=== PATIENT | female | born 1990 | race Caucasian/White ===

== ENCOUNTER 2017-12-29 13:26 | Emergency (ER) | payer OTHER ==
--- NOTE | 2017-12-29 13:44 | ER Document Report ---
ED Medical Screen (RME) - General Chief Complaint: Abdominal Pain Stated Complaint: ABDOMINAL PAIN Time Seen by Provider: 12/29/17 13:42 Mode of Arrival: Ambulatory Information source: Patient Notes: 27-year-old female presents to the emergency room with a 4 week history of stomach pains, diarrhea. Patient denies any blood in the stool. She does have a family history for Crohn's disease as well as irritable bowel disease. She has had similar presentations in the past and is has been on probiotics in the past with minimal benefit. She is from [place] and does not have a primary care doctor in this area. She is allergic to penicillin. She takes ranitidine for GERD on an as-needed basis. I have greeted and performed a rapid initial assessment of this patient. A comprehensive ED assessment and evaluation of the patient, analysis of test results and completion of medical decision making process we will be contacted by additional ED providers. TRAVEL OUTSIDE OF THE [place] IN LAST 30 DAYS: No - Related Data Allergies/Adverse Reactions: Penicillins Allergy (Verified 12/29/17 13:27) Physical Exam - Vital signs Vitals: Temp Pulse Resp BP Pulse Ox 97.8 F 84 18 115/74 97 12/29/17 13:31 12/29/17 13:31 12/29/17 13:31 12/29/17 13:31 12/29/17 13:31 Course - Vital Signs Vital signs: Temp Pulse Resp BP Pulse Ox 97.8 F 84 18 115/74 97 12/29/17 13:31 12/29/17 13:31 12/29/17 13:31 12/29/17 13:31 12/29/17 13:31
[2017-12-29 14:21] LABS: ABSOLUTE EOSINOPHILS # (AUTO) 0.1 10^3/uL (0.0-0.6); ABSOLUTE LYMPHOCYTES (AUTO) 2.1 10^3/uL (0.5-4.7); ABSOLUTE MONOCYTES (AUTO) 0.6 10^3/uL (0.1-1.4); ABSOLUTE NEUT (AUTO) 5.5 10^3/uL (1.7-8.2); BASOPHILS % (AUTO) 0.5 % (0-2); EOSINOPHILS % (AUTO) 1.1 % (0-6); HEMATOCRIT 46.9 % (36.0-47.0); HEMOGLOBIN 15.6 g/dL (12.0-15.5); LYMPHOCYTES % (AUTO) 24.9 % (13-45); MEAN CORPUSCULAR HEMOGLOBIN 29.7 pg (27.0-33.4); MEAN CORPUSCULAR HGB CONC 33.2 g/dL (32.0-36.0); MEAN CORPUSCULAR VOLUME 90 fl (80-97); MONOCYTES % (AUTO) 7.3 % (3-13); RED BLOOD COUNT 5.24 10^6/uL (3.72-5.28); RED CELL DISTRIBUTION WIDTH 13.1 % (11.5-14.0); SEGMENTED NEUTROPHILS % (AUTO) 66.2 % (42-78); TOTAL CELLS COUNTED % (AUTO) 100 %; WHITE BLOOD COUNT 8.4 10^3/uL (4.0-10.5)
[2017-12-29 14:22] LABS: APPEARANCE,URINE SLIGHTLY-CLOUDY; BILIRUBIN,URINE NEGATIVE (NEGATIVE); COLOR,URINE AMBER; GLUCOSE, URINE NEGATIVE (NEGATIVE); KETONES,URINE 80 mg/dL (NEGATIVE); LEUKOCYTE ESTERASE,URINE MODERATE (NEGATIVE); NITRITE,URINE NEGATIVE (NEGATIVE); PROTEIN,URINE 30 mg/dL (NEGATIVE); URINE SPECIFIC GRAVITY 1.025
[2017-12-29] MEDS ORDERED: METOCLOPRAMIDE HCL ORAL SOLN 10 MG/10 ML UDCUP PO ONE (14:30)
[2017-12-29] MEDS ORDERED: MAG HYDROX/AL HYDROX/SIMETH SUSP 30 ML UDCUP PO ONE (14:30)
--- NOTE | 2017-12-29 14:49 | ER Document Report ---
ED General - General Chief Complaint: Abdominal Pain Stated Complaint: ABDOMINAL PAIN Time Seen by Provider: 12/29/17 13:42 Mode of Arrival: Ambulatory Notes: Patient is a 27-year-old female who presents emergency department the chief complaint of 6 weeks of abdominal cramping and nausea. She describes it as cramping abdominal pain that gets worse with eating any canned foods. She denies any specific worsening pain or right upper quadrant pain with fatty foods. She admits to history of esophageal reflux but does not take PPIs on a regular basis. She denies any coffee-ground emesis or hematemesis. She admits to loose stools over the past 7 days but denies any bright red blood per rectum or melena. She admits to family history significant for Crohn's disease and IBS. Patient states that she had similar episodes like this a year ago but she never followed up with . Patient states that she has been living here for a year and has not established a primary care. Patient states that she had previous primary care up in [place]. ROS: + urine odor frequency TRAVEL OUTSIDE OF THE [place] IN LAST 30 DAYS: No - Related Data Allergies/Adverse Reactions: Penicillins Allergy (Verified 12/29/17 13:27) Past Medical History - General Information source: Patient - Social History Smoking Status: Former Smoker Chew tobacco use (# tins/day): No Frequency of alcohol use: None Drug Abuse: None Family History: Other - see hpi Patient has suicidal ideation: No Patient has homicidal ideation: No Renal/ Medical History: Denies: Hx Peritoneal Dialysis Review of Systems - Review of Systems Constitutional: No symptoms reported Cardiovascular: No symptoms reported Respiratory: No symptoms reported Gastrointestinal: See HPI Genitourinary: No symptoms reported Female Genitourinary: No symptoms reported -: Yes All other systems reviewed and negative Physical Exam - Vital signs Vitals: Temp Pulse Resp BP Pulse Ox 97.8 F 84 18 115/74 97 12/29/17 13:31 12/29/17 13:31 12/29/17 13:31 12/29/17 13:31 12/29/17 13:31 - Notes Notes: PHYSICAL EXAM GENERAL: Alert, interacts well. LUNGS: Clear to auscultation bilaterally, no wheezes, rales, or rhonchi. No respiratory distress. HEART: Regular rate and rhythm. No murmurs, gallops, or rubs. ABDOMEN: Soft, nondistended, nontender. Negative for Ravenden's point, Mcqueen sign no guarding, rebound, or rigidity.. Bowel sounds present in all 4 quadrants. EXTREMITIES: Moves all 4 extremities spontaneously. No edema, radial and dorsalis pedis pulses 2/4 bilaterally. No cyanosis. NEUROLOGICAL: Alert and oriented x4. Normal speech. PSYCH: Normal affect, normal mood. SKIN: Warm, dry, normal turgor. No rashes or lesions noted. Course - Re-evaluation Re-evalutation: 12/29/17 16:39 Patient is a 27-year-old female is hemodynamically stable, no acute distress afebrile presenting with chronic abdominal pain. Patient's symptoms resolved after p.o. GI cocktail. Laboratory without any evidence of leukocytosis, anemia , x-rayed abnormalities, hepatic renal dysfunction. Lipase was also within normal limits. No concern for acute abdominal pathology regarding gallbladder disease, pancreatitis, acute appendicitis. she also has evidence of symptoms consistent with an acute cystitis. Vitals wnl. No history of fever, flank pain, or constitution symptoms to suggest ascending infection at this time. Patient is well in appearance, tolerating oral intake without difficulty. No focal abdominal tenderness to suggest acute appendicitis, biliary pathology, acute pancreatitis, tubo-ovarian abscesses, or pelvic inflammatory disease. Patient will be started on antibiotics at this time. A culture has been sent. They will be discharged with return precautions and follow-up recommendations. - Vital Signs Vital signs: Temp Pulse Resp BP Pulse Ox 98.4 F 107 H 16 106/61 99 12/29/17 16:52 12/29/17 16:52 12/29/17 16:52 12/29/17 16:52 12/29/17 16:52 - Laboratory Result Diagrams: 12/29/17 13:56 12/29/17 15:52 Laboratory results interpreted by me: 12/29/17 12/29/17 12/29/17 13:51 13:56 15:52 Hgb 15.6 H Calcium 10.4 H Urine Protein 30 H Urine Ketones 80 H Urine Urobilinogen 4.0 H Ur Leukocyte Esterase MODERATE H Discharge - Discharge Clinical Impression: UTI (urinary tract infection) Qualifiers: Urinary tract infection type: acute cystitis Hematuria presence: without hematuria Qualified Code(s): N30.00 - Acute cystitis without hematuria GERD (gastroesophageal reflux disease) Qualifiers: Esophagitis presence: without esophagitis Qualified Code(s): K21.9 - Gastro- esophageal reflux disease without esophagitis Condition: Good Disposition: HOME, SELF-CARE Instructions: Reflux Disease (GERD) ([facility]), Urinary Tract Infection ([facility]) Prescriptions: Ciprofloxacin HCl [Cipro 250 mg Tablet] 1 tab PO BID #6 tab Omeprazole Magnesium [Prilosec Otc] 20 mg PO DAILY #30 tablet. Ondansetron [Zofran Odt 4 mg Tablet] 1 - 2 tab PO Q4H PRN #15 tab.rapdis PRN Reason: For Nausea/Vomiting Sucralfate [Carafate 1 gm Tablet] 1 gm PO ACHS #120 tablet Forms: Return to Work Referrals: AI DUNN DO [NO LOCAL MD] - Follow up as needed (primary care) CARYN MASTERS MD [ACTIVE STAFF] - Follow up in 1 month (gastroenterolgy)
[2017-12-29 14:55] LABS: PLATELET COUNT 255 10^3/uL (150-450)
[2017-12-29 16:16] LABS: ALANINE AMINOTRANSFERASE 18 U/L (9-52); ALKALINE PHOSPHATASE 56 U/L (38-126); ANION GAP 17 (5-19); ASPARTATE AMINO TRANSFERASE 20 U/L (14-36); BILIRUBIN,DIRECT 0.4 mg/dL (0.0-0.4); BILIRUBIN,TOTAL 0.9 mg/dL (0.2-1.3); BLOOD UREA NITROGEN 9 mg/dL (7-20); CALCIUM 10.4 mg/dL (8.4-10.2); CARBON DIOXIDE 23 mmol/L (22-30); CHLORIDE 105 mmol/L (98-107); GLUCOSE 90 mg/dL (75-110); POTASSIUM 4.1 mmol/L (3.6-5.0); SODIUM 144.5 mmol/L (137-145); TOTAL PROTEIN 7.9 g/dL (6.3-8.2)
[2017-12-29] MEDS ORDERED: CIPROFLOXACIN HCL 500 MG TABLET PO ONE (16:42)
[2017-12-29 16:53] VITALS: BP 106/61
== END 2017-12-29 17:01 | disposition home or self-care (01) ==
LOC: ER 13:26
DX: N30.00 Acute cystitis without hematuria (principal); K21.9 Gastro-esophageal reflux disease without esophagitis; R19.4 Change in bowel habit; R10.9 Unspecified abdominal pain; G89.29 Other chronic pain; Z87.19 Personal history of other diseases of the digestive system; Z83.79 Family history of other diseases of the digestive system; Z87.891 Personal history of nicotine dependence; Z88.0 Allergy status to penicillin
CPT/HCPCS: 36415; 80053; 81001; 81025; 83690; 84702; 85025; 99284

== ENCOUNTER 2018-05-03 17:37 | Emergency (ER) | payer OTHER ==
[2018-05-03] MEDS ORDERED: NORMAL SALINE 1000 ML 1,000 ML IV ONE (18:29)
[2018-05-03] MEDS ORDERED: ONDANSETRON HCL INJ/PF 4 MG/2 ML SDV IV ONE ×2 (18:29→20:27)
--- NOTE | 2018-05-03 18:31 | ER Document Report ---
ED Medical Screen (RME) - General Chief Complaint: Abdominal Pain Stated Complaint: VOMITING/DIARRHEA/ABDOMINAL PAIN Time Seen by Provider: 05/03/18 18:28 Mode of Arrival: Wheelchair Information source: Patient, Relative TRAVEL OUTSIDE OF THE U.S[place] IN LAST 30 DAYS: No - HPI Patient complains to provider of: vomiting in Onset: Other - pt is G1 approx 6 wks along with constant nausea and vomoiting for the past 3-4 dayswith intermittent abd pain - Related Data Allergies/Adverse Reactions: Penicillins Allergy (Verified 12/29/17 13:27) Past Medical History - Social History Chew tobacco use (# tins/day): No Frequency of alcohol use: None Drug Abuse: Marijuana Renal/ Medical History: Denies: Hx Peritoneal Dialysis GI Medical History: Reports: Hx Gastroesophageal Reflux Disease Past Surgical History: Reports: Hx Breast Surgery - left fibroid removed, Hx Oral Surgery Physical Exam - Vital signs Vitals: Temp Pulse Resp BP Pulse Ox 97.5 F 83 18 107/70 100 05/03/18 17:49 05/03/18 17:49 05/03/18 17:49 05/03/18 17:49 05/03/18 17:49 Course - Vital Signs Vital signs: Temp Pulse Resp BP Pulse Ox 97.5 F 83 18 107/70 100 05/03/18 17:49 05/03/18 17:49 05/03/18 17:49 05/03/18 17:49 05/03/18 17:49
[2018-05-03 19:22] LABS: HEMATOCRIT 43.7 % (36.0-47.0); HEMOGLOBIN 15.1 g/dL (12.0-15.5); MEAN CORPUSCULAR HEMOGLOBIN 30.4 pg (27.0-33.4); MEAN CORPUSCULAR HGB CONC 34.4 g/dL (32.0-36.0); MEAN CORPUSCULAR VOLUME 88 fl (80-97); PLATELET COUNT 380 10^3/uL (150-450); RED BLOOD COUNT 4.95 10^6/uL (3.72-5.28); RED CELL DISTRIBUTION WIDTH 13.1 % (11.5-14.0); WHITE BLOOD COUNT 14.7 10^3/uL (4.0-10.5)
[2018-05-03 19:47] LABS: ALANINE AMINOTRANSFERASE 21 U/L (9-52); ALBUMIN 5.3 g/dL (3.5-5.0); ALKALINE PHOSPHATASE 57 U/L (38-126); ASPARTATE AMINO TRANSFERASE 25 U/L (14-36); BILIRUBIN,DIRECT 0.4 mg/dL (0.0-0.4); BILIRUBIN,TOTAL 1.1 mg/dL (0.2-1.3); BLOOD UREA NITROGEN 9 mg/dL (7-20); CALCIUM 10.8 mg/dL (8.4-10.2); GLUCOSE 130 mg/dL (75-110); POTASSIUM 4.1 mmol/L (3.6-5.0); TOTAL PROTEIN 8.4 g/dL (6.3-8.2)
[2018-05-03 19:51] LABS: ABSOLUTE LYMPHOCYTES# (MANUAL) 0.6 10^3/uL (0.5-4.7); ABSOLUTE MONOCYTES # (MANUAL) 0.1 10^3/uL (0.1-1.4); BASOPHILS % (MANUAL) 0 % (0-2); EOSINOPHILS % (MANUAL) 0 % (0-6); LYMPHOCYTES % (MANUAL) 4 % (13-45); MONOCYTES % (MANUAL) 1 % (3-13); SEGMENTED NEUTROPHILS % (MAN) 95 % (42-78); TOTAL CELLS COUNTED 100
[2018-05-03 19:52] LABS: OVALOCYTES SLIGHT; PLATELET COMMENT ADEQUATE; PLATELET LARGE PRESENT; POIKILOCYTOSIS SLIGHT
[2018-05-03 19:52] LABS: ANION GAP 18 (5-19); CARBON DIOXIDE 17 mmol/L (22-30); CHLORIDE 103 mmol/L (98-107)
[2018-05-03] MEDS ORDERED: DEXTROSE 5%-1/2 NORMAL SALINE 1,000 ML IV ONE (21:13)
--- NOTE | 2018-05-03 21:13 | RADIOLOGY REPORT (SQ) ---
EXAM DESCRIPTION: US PELVIS COMPLETED DATE/TME: 05/03/2018 18:29 CLINICAL HISTORY: 28 years, Female, abd pain COMPARISON: None. EXAM DESCRIPTION: CLINICAL HISTORY: abd pain COMPARISON: None. FINDINGS: [] [transvaginal ] images of the pelvis were submitted. Uterus measures 84 x 51 x 39 mm. Cervix length is 3.3 cm. Right ovary measures 31 x 18 x 19 mm and left ovary 32 x 11 x 14 mm. There is a single IUP with estimated gestational age of six weeks five days, ultrasound UGO is December 22, 2018. Yolk sac and gestational sac are seen. No cardiac motion is identified at this time. There are probable nabothian cysts. Echogenic focus of the left ovary could be a hemorrhagic cyst but is nonspecific. Flow is seen in each ovary. There is no sonographic evidence of ovarian torsion. There is no significant free fluid in the pelvis. IMPRESSION: Single IUP as described. Lack of heart motion could be due to young gestational age but follow-up is recommended.
[2018-05-03] MEDS ORDERED: PROCHLORPERAZINE EDISYLATE INJ 10 MG/2 ML VIAL IV ONE (21:14)
[2018-05-03] MEDS ORDERED: ACETAMINOPHEN WITH CODEINE #3 TABLET PO ONE (21:14)
--- NOTE | 2018-05-03 21:15 | ER Document Report ---
ED GI/ - General Chief Complaint: Abdominal Pain Stated Complaint: VOMITING/DIARRHEA/ABDOMINAL PAIN Time Seen by Provider: 05/03/18 18:28 Mode of Arrival: Wheelchair Notes: 28-year-old female to the emergency department chief complaint of nausea and vomiting and diarrhea. Patient thinks that she is approximately 6 weeks . Having some crampy lower abdominal pain. Has not had an ultrasound. States that she always have diarrhea. Diarrhea is worse today. Denies any fever but does have generalized chills and aches. Denies any vaginal complaints. Denies any vaginal bleeding at this time. TRAVEL OUTSIDE OF THE [place] IN LAST 30 DAYS: No - HPI Patient complains to provider of: Abdominal pain, Diarrhea, , Vomiting Onset: Yesterday Timing/Duration: Gradual, Worse Quality of pain: Achy Severity at maximum: Moderate Severity in ED: Moderate Pain Level: 3 - Related Data Allergies/Adverse Reactions: Penicillins Allergy (Verified 12/29/17 13:27) Past Medical History - General Information source: Patient, Relative - Social History Smoking Status: Never Smoker Chew tobacco use (# tins/day): No Frequency of alcohol use: None Drug Abuse: Marijuana Family History: Other - see hpi Patient has suicidal ideation: No Patient has homicidal ideation: No Renal/ Medical History: Denies: Hx Peritoneal Dialysis GI Medical History: Reports: Hx Gastroesophageal Reflux Disease Past Surgical History: Reports: Hx Breast Surgery - left fibroid removed, Hx Oral Surgery Review of Systems - Review of Systems Notes: Constitutional: Complaining of chills and fever EENT: denies: Eye discharge, Blurred vision, Tearing, Double vision, Nose congestion, Nose discharge, Throat swelling, Mouth pain Cardiovascular: denies: Palpitations, Heart racing, Orthopnea, Dyspnea, Chest pain Respiratory: denies: Cough, Hurts to breathe, Wheezing, Shortness of breath Gastrointestinal: Patient reports complaints of nausea, vomiting, diarrhea and abdominal pain, . Denies any blood in the stool Genitourinary: denies: Burning, Dysuria, Discharge, Frequency, Flank pain, Hematuria Musculoskeletal: denies: Joint pain, Joint swelling, Muscle pain, Muscle stiffness, back pain Hematologic/Lymphatic: denies: Anemia, Easy bleeding, Easy bruising, Blood clots Neurological/Psychological: denies: Confusion, Dementia, Depression, Loss of consciousness Skin: No lesions, no masses, no skin breakdown, no abscesses Physical Exam - Vital signs Vitals: Temp Pulse Resp BP Pulse Ox 97.5 F 83 18 107/70 100 05/03/18 17:49 05/03/18 17:49 05/03/18 17:49 05/03/18 17:49 05/03/18 17:49 Interpretation: Normal - General General appearance: Appears well, Alert - HEENT Head: Normocephalic, Atraumatic Eyes: Normal Pupils: PERRL - Respiratory Respiratory status: No respiratory distress Chest status: Nontender Breath sounds: Normal Chest palpation: Normal - Cardiovascular Rhythm: Regular Heart sounds: Normal auscultation Murmur: No - Abdominal Inspection: Normal Distension: No distension Bowel sounds: Hyperactive Tenderness: Nontender. No: McBurney's point, Mcqueen's sign, Guarding, Rebound Organomegaly: No organomegaly Notes: She has a benign abdomen. Has no guarding or rebound no pain in the right lower quadrant with deep palpation - Back Back: Normal, Nontender - Extremities General upper extremity: Normal inspection, Nontender, Normal color, Normal ROM , Normal temperature General lower extremity: Normal inspection, Nontender, Normal color, Normal ROM , Normal temperature, Normal weight bearing. No: Juwan's sign - Neurological Neuro grossly intact: Yes Cognition: Normal Orientation: AAOx4 Richardson Coma Scale Eye Opening: Spontaneous Irma Coma Scale Verbal: Oriented Richardson Coma Scale Motor: Obeys Commands Irma Coma Scale Total: 15 Speech: Normal Motor strength normal: LUE, RUE, LLE, RLE Sensory: Normal - Psychological Associated symptoms: Normal affect, Normal mood - Skin Skin Temperature: Warm Skin Moisture: Dry Skin Color: Normal Course - Re-evaluation Re-evalutation: 05/03/18 21:25 Patient is a mildly elevated WBC count. Positive . Ultrasound obtained which shows intrauterine . No obvious dilated tubular structures in the right lower quadrant. Has a very benign exam. Patient demonstrating more signs and symptoms consistent with a gastroenteritis however strict warning signs are going to be given with regards to abdominal pain as it can be very difficult diagnosis especially when trying to rule out appendicitis while . Patient verbalized understanding of the fact that she needs to come in for repeat evaluation in 24 hours if symptoms are persisting. We will give her some Compazine as Spenser does not seem to be helping. I am going to give her another liter of fluid and a Tylenol 3 to help with the cramping that she is having in the abdomen from the diarrhea. 05/03/18 23:03 Patient feeling a little bit better at this time. I have given her strict instructions with regards to 24-hour follow-up. Will DC at this time in stable condition. Will give follow-up information for gastroenterology as patient may actually have undiagnosed ulcerative colitis or Crohn's disease based on her history. - Vital Signs Vital signs: Temp Pulse Resp BP Pulse Ox 97.5 F 83 18 107/70 100 05/03/18 17:49 05/03/18 17:49 05/03/18 17:49 05/03/18 17:49 05/03/18 17:49 - Laboratory Result Diagrams: 05/03/18 18:24 05/03/18 18:28 Laboratory results interpreted by me: 05/03/18 05/03/18 05/03/18 18:24 18:28 21:10 WBC 14.7 H Seg Neuts % (Manual) 95 H Lymphocytes % (Manual) 4 L Monocytes % (Manual) 1 L Abs Neuts (Manual) 14.0 H Carbon Dioxide 17 L Glucose 130 H Calcium 10.8 H Total Protein 8.4 H Albumin 5.3 H Beta HCG, Quant 72561.00 H Urine Protein 30 H Urine Ketones 80 H Urine Blood SMALL H Discharge - Discharge Clinical Impression: Hyperemesis gravidarum Condition: Good Disposition: HOME, SELF-CARE Instructions: Observation for Appendicitis ([facility]), Intravenous (IV) Fluids ([facility]) , Diarrhea, Nonspecific ([facility]), Hyperemesis Gravidarum ([facility]) Additional Instructions: In the event that your abdominal pain is getting worse, you develop a fever, worsening symptoms in the next 24 hours please return as it can sometimes be very difficult to diagnose appendicitis in the first 24 hours. It will probably be important that you follow-up with a motor grader operator to make sure that you do not have an inflammatory bowel disease based on your history. Please make an appointment follow-up with [facility] as well. Drink plenty of fluids. Return for any other concerns. Some insurance companies will not pay for the nausea medicine for which I have prescribed as it is quite expensive. If your insurance does not pay for the medication then I recommend getting over- the-counter vitamin B6 and take 10 mg twice a day and take 1 doxylamine (also known as Unisom) tablet at night this is basically the same medication for which I have prescribed you. Prescriptions: Doxylamine Succinate/Vit B6 [Raghavendra Tamez 10-10 mg Tablet] 2 each PO QHS 15 Days #30 tablet. Referrals: HELEN COBB MD [ACTIVE STAFF] - Follow up in 3-5 days DARIUS STOKES MD [ACTIVE STAFF] - Follow up as needed ABIGAIL AUSTIN MD [ACTIVE STAFF] - Follow up as needed
[2018-05-03 21:26] LABS: APPEARANCE,URINE SLIGHTLY-CLOUDY; BILIRUBIN,URINE NEGATIVE (NEGATIVE); COLOR,URINE YELLOW; GLUCOSE, URINE NEGATIVE (NEGATIVE); KETONES,URINE 80 mg/dL (NEGATIVE); LEUKOCYTE ESTERASE,URINE NEGATIVE (NEGATIVE); NITRITE,URINE NEGATIVE (NEGATIVE); PROTEIN,URINE 30 mg/dL (NEGATIVE); URINE SPECIFIC GRAVITY 1.023; UROBILINOGEN,URINE NEGATIVE mg/dL (<2.0)
[2018-05-03] MEDS ORDERED: ONDANSETRON ODT 4 MG TAB (6 TAB/ER DISP) PO PRN (23:03)
[2018-05-03 23:33] VITALS: BP 115/57
== END 2018-05-03 23:39 | disposition home or self-care (01) ==
LOC: ER 17:37
DX: O21.0 Mild hyperemesis gravidarum (principal); O26.899 Other specified pregnancy related conditions, unspecified trimester; R19.7 Diarrhea, unspecified; R10.30 Lower abdominal pain, unspecified; R10.9 Unspecified abdominal pain; R68.83 Chills (without fever); O99.320 Drug use complicating pregnancy, unspecified trimester; F12.10 Cannabis abuse, uncomplicated; O99.119 Other diseases of the blood and blood-forming organs and certain disorders involving the immune mechanism complicating pregnancy, unspecified trimester; D72.829 Elevated white blood cell count, unspecified; Z3A.00 Weeks of gestation of pregnancy not specified; Z88.0 Allergy status to penicillin; Z87.19 Personal history of other diseases of the digestive system
CPT/HCPCS: 96376; 99284; 96361; 96374; 96375; 36415; 84702; 85025; 80053; 81001; 76856; 93976; J0780; J2405; J7030

== ENCOUNTER 2018-05-07 00:57 | Emergency (ER) | payer OTHER ==
[2018-05-07] MEDS ORDERED: NORMAL SALINE 1000 ML 1,000 ML IV ONE ×2 (03:17→06:00)
[2018-05-07] MEDS ORDERED: PROCHLORPERAZINE EDISYLATE INJ 10 MG/2 ML VIAL IM ONE (03:29)
[2018-05-07] MEDS ORDERED: PROCHLORPERAZINE EDISYLATE INJ 10 MG/2 ML VIAL IV ONE (03:35)
--- NOTE | 2018-05-07 03:45 | ER Document Report ---
ED General - General Chief Complaint: Nausea/Vomiting Stated Complaint: PROBLEMS URINATING,VOMITING Time Seen by Provider: 05/07/18 03:02 Notes: Patient is a 28-year-old female presenting to the emergency department complaining of vomiting. Patient states she has vomited over 20 times today is currently denying blood in her emesis. Patient's denying diarrhea, fever, or dysuria. Patient states her stomach hurts "all over". Patient states this afternoon after urinating when she wiped she noticed a pink/red tinge on the toilet paper. Patient is unsure if blood is coming from her urine or her vagina. Patient states she was here on Sunday for vomiting and diarrhea. States vomiting got a little bit better with Compazine administration. Patient states Zofran did not work at all. Patient states her last menstrual period was 03/19/2018, she thinks she is 7 weeks . She has an appointment with ANV[facility] and Gio Peng on 2017. Patient states she typically smokes marijuana for intermittent abdominal pain. States she has never seen a business services vice president for this. States she has episodes of diarrhea and constipation often. Patient denies currently smoking marijuana. Past medical history: GERD Medications: None Allergies: Penicillin Surgical history: Left breast cyst removed Patient denies EtOH use or cigarette use. Patient admits to occasional marijuana use but not since she found out she is . TRAVEL OUTSIDE OF THE U.S[place] IN LAST 30 DAYS: No - Related Data Allergies/Adverse Reactions: Penicillins Allergy (Verified 12/29/17 13:27) Past Medical History - General Information source: Patient - Social History Smoking Status: Never Smoker Chew tobacco use (# tins/day): No Frequency of alcohol use: None Drug Abuse: None Lives with: Family Family History: Reviewed & Not Pertinent, Other - see hpi Patient has suicidal ideation: No Patient has homicidal ideation: No Renal/ Medical History: Denies: Hx Peritoneal Dialysis GI Medical History: Reports: Hx Gastroesophageal Reflux Disease Past Surgical History: Reports: Hx Breast Surgery - left fibroid removed, Hx Oral Surgery Review of Systems - Review of Systems Constitutional: See HPI EENT: No symptoms reported Cardiovascular: No symptoms reported Respiratory: No symptoms reported Gastrointestinal: See HPI Genitourinary: See HPI Female Genitourinary: See HPI Musculoskeletal: No symptoms reported Skin: No symptoms reported Hematologic/Lymphatic: No symptoms reported Neurological/Psychological: No symptoms reported Physical Exam - Vital signs Vitals: Temp Pulse Resp BP Pulse Ox 98.0 F 82 18 103/49 L 99 05/07/18 01:40 05/07/18 01:40 05/07/18 01:40 05/07/18 01:40 05/07/18 01:40 - Notes Notes: GENERAL: Alert, interacts well. Vomited twice saliva and bile in nature while in room obtaining HPI. HEAD: Normocephalic, atraumatic. EYES: Pupils equal, round, and reactive to light. Extraocular movements intact. ENT: Oral mucosa dry, tongue midline. NECK: Full range of motion. Supple. Trachea midline. LUNGS: Clear to auscultation bilaterally, no wheezes, rales, or rhonchi. No respiratory distress. HEART: Regular rate and rhythm. No murmur ABDOMEN: Soft, Non-distended. Bowel sounds present in all 4 quadrants. Mild epigastric pain upon palpation. No McBurney's point tenderness, no Mcqueen sign. EXTREMITIES: Moves all 4 extremities spontaneously. No edema, normal radial and dorsalis pedis pulses bilaterally. No cyanosis. BACK: no cervical, thoracic, lumbar midline tenderness. No saddle anesthesia, normal distal neurovascular exam. NEUROLOGICAL: Alert and oriented x3. Normal speech. cranial nerves II through XII grossly intact PSYCH: Normal affect, normal mood. SKIN: Warm, dry, normal turgor. No rashes or lesions noted. Course - Re-evaluation Re-evalutation: 05/07/18 06:05 Pt. stated that she not longer feels nauseated and was able to PO some ice chips. Stated that she did not get the RX filled from her last visit ([facility]) because she was told it was for diarrhea and she was not having anymore diarrhea. Stated again that she has an apt with OBGYN on 05/15/2018. Discussed need to fill RX given and she stated she still had it. Also discussed with the Pt. take Zantac at home for a potential GERD underlying illness. Only Zantac in the ED is liquid which I think will upset the Pts stomach, she agrees to take it at home in pill form. 05/07/18 06:51 RN stated Pt. was nauseated again but had not again vomited, Zofran ordered and given. Upon re-eval Pt. stated she no longer feels nauseated. Second IV NSS 1000ml given. Pt. stated she is ready to go home. Return precautions given. - Vital Signs Vital signs: Temp Pulse Resp BP Pulse Ox 98.0 F 82 18 103/49 L 99 05/07/18 01:40 05/07/18 01:40 05/07/18 01:40 05/07/18 01:40 05/07/18 01:40 - Laboratory Result Diagrams: 05/07/18 03:40 05/07/18 05:05 Laboratory results interpreted by me: 05/07/18 05/07/18 05/07/18 03:40 05:05 05:05 Seg Neutrophils % 89.4 H Lymphocytes % 7.4 L Absolute Neutrophils 9.1 H Carbon Dioxide 19 L BUN 5 L Creatinine 0.50 L Beta HCG, Quant 48643.00 H Urine Protein Urine Ketones Urine HCG, Qual 05/07/18 06:15 Seg Neutrophils % Lymphocytes % Absolute Neutrophils Carbon Dioxide BUN Creatinine Beta HCG, Quant Urine Protein 30 H Urine Ketones 80 H Urine HCG, Qual POSITIVE H Discharge - Discharge Clinical Impression: Hyperemesis gravidarum Condition: Stable Disposition: HOME, SELF-CARE Instructions: Antinausea Medication ([facility]), Intravenous (IV) Fluids ([facility]), Vomiting ([facility]) Additional Instructions: As we discussed your US shows no current abnormalities with the baby. You still need to keep your apt with BGYN on the 24th. You should take Zofran for vomiting , and also take Zantac as prescribed. You should get the Diclegis prescription filled that was given to the other day. Please return to the emergency room should you have uncontrollable vomiting, feels lightheaded dizzy, or any other concerning symptoms. Prescriptions: Ondansetron [Zofran Odt 4 mg Tablet] 1 - 2 tab PO Q4H PRN #10 tab.rapdis PRN Reason: For Nausea/Vomiting Ranitidine HCl [Zantac] 150 mg PO DAILY #30 tablet
[2018-05-07 03:54] LABS: ABSOLUTE LYMPHOCYTES (AUTO) 0.8 10^3/uL (0.5-4.7); ABSOLUTE MONOCYTES (AUTO) 0.3 10^3/uL (0.1-1.4); ABSOLUTE NEUT (AUTO) 9.1 10^3/uL (1.7-8.2); BASOPHILS % (AUTO) 0.2 % (0-2); HEMATOCRIT 42.7 % (36.0-47.0); HEMOGLOBIN 14.8 g/dL (12.0-15.5); LYMPHOCYTES % (AUTO) 7.4 % (13-45); MEAN CORPUSCULAR HEMOGLOBIN 30.2 pg (27.0-33.4); MEAN CORPUSCULAR HGB CONC 34.6 g/dL (32.0-36.0); MEAN CORPUSCULAR VOLUME 87 fl (80-97); PLATELET COUNT 337 10^3/uL (150-450); RED BLOOD COUNT 4.88 10^6/uL (3.72-5.28); RED CELL DISTRIBUTION WIDTH 12.9 % (11.5-14.0); SEGMENTED NEUTROPHILS % (AUTO) 89.4 % (42-78); TOTAL CELLS COUNTED % (AUTO) 100 %; WHITE BLOOD COUNT 10.2 10^3/uL (4.0-10.5)
--- NOTE | 2018-05-07 05:23 | RADIOLOGY REPORT (SQ) ---
CLINICAL DATA: 28-year-old female seven weeks with vaginal bleeding. TECHNICAL DATA: Sonographic imaging of the pelvis was performed transvaginally. FINDINGS: The uterus is normal in size and configuration and measures: 8.1 x 3.5 x 6.3 cm. There are small cervical nabothian cysts. There is a normal appearing intrauterine gestational sac. The average sac diameter measures Centimeters. There is a yolk sac and pole. The average crown-rump length measures 0.3 cm corresponding to a gestational age of five weeks six days. The estimated date of confinement is 01/01/2019. Doppler imaging reveals a heart rate of 150 beats per minute. The right ovary is grossly normal in size, shape and echogenicity and measures: 2.4 x 3.4 x 1.9 cm. There is a dominant follicle arising from the right ovary measuring 1.3 x 2.1 x 1.2 cm. There is normal pulsed and color Doppler flow to the right ovary. The left ovary is grossly normal in size, shape and echogenicity and measures: 1.4 x 3.6 x 1.5 cm. There is a stable small focal area of increased echogenicity arising from the left ovary measuring approximately 0.6 x 0.5 x 0.5 cm. This is nonspecific. This could represent a small scar within the left ovary or small hemorrhagic cyst. There are normal-appearing follicles arising from the left ovary. There is normal pulsed and color Doppler flow to the left ovary. There is no free fluid in the pelvis. IMPRESSION: 1. There is now visualization of a pole with an average crown-rump length of 0.3 cm corresponding to a gestational age of five weeks six days and estimated due date of 01/01/2019. Doppler imaging reveals a heart rate of 150 bpm. 2. Other stable findings as described above.
[2018-05-07 05:34] LABS: ALANINE AMINOTRANSFERASE 21 U/L (9-52); ALBUMIN 4.2 g/dL (3.5-5.0); ALKALINE PHOSPHATASE 45 U/L (38-126); ANION GAP 15 (5-19); ASPARTATE AMINO TRANSFERASE 18 U/L (14-36); BILIRUBIN,DIRECT 0.3 mg/dL (0.0-0.4); BILIRUBIN,TOTAL 0.9 mg/dL (0.2-1.3); BLOOD UREA NITROGEN 5 mg/dL (7-20); CALCIUM 9.3 mg/dL (8.4-10.2); CARBON DIOXIDE 19 mmol/L (22-30); CHLORIDE 106 mmol/L (98-107); GLUCOSE 109 mg/dL (75-110); POTASSIUM 3.6 mmol/L (3.6-5.0); SODIUM 139.9 mmol/L (137-145); TOTAL PROTEIN 6.8 g/dL (6.3-8.2)
[2018-05-07] MEDS ORDERED: RANITIDINE HCL SYRUP 150 MG/10 ML UDCUP PO ONE (06:27)
[2018-05-07] MEDS ORDERED: ONDANSETRON HCL INJ/PF 4 MG/2 ML SDV IV ONE (06:27)
[2018-05-07 06:33] LABS: APPEARANCE,URINE SLIGHTLY-CLOUDY; BILIRUBIN,URINE NEGATIVE (NEGATIVE); COLOR,URINE YELLOW; GLUCOSE, URINE NEGATIVE (NEGATIVE); KETONES,URINE 80 mg/dL (NEGATIVE); LEUKOCYTE ESTERASE,URINE NEGATIVE (NEGATIVE); NITRITE,URINE NEGATIVE (NEGATIVE); PROTEIN,URINE 30 mg/dL (NEGATIVE); URINE SPECIFIC GRAVITY 1.023; UROBILINOGEN,URINE NEGATIVE mg/dL (<2.0)
[2018-05-07 07:58] VITALS: BP 108/54
== END 2018-05-07 07:45 | disposition home or self-care (01) ==
LOC: ER 00:57
DX: O21.0 Mild hyperemesis gravidarum (principal); O26.891 Other specified pregnancy related conditions, first trimester; R10.84 Generalized abdominal pain; Z3A.01 Less than 8 weeks gestation of pregnancy; Z88.0 Allergy status to penicillin
CPT/HCPCS: 99284; 96361; 96374; 96375; 86900; 86901; 36415; 84702; 83690; 85025; 81025; 80053; 81001; 76817; 93976; J0780; J2405; J7030

== ENCOUNTER 2018-05-11 05:32 | Emergency (ER) | payer OTHER ==
[2018-05-11] MEDS ORDERED: FAMOTIDINE INJ/PF 20 MG/2 ML SDV IV ONE (06:19)
[2018-05-11] MEDS ORDERED: PROMETHAZINE HCL INJ 25 MG/1 ML VIAL IV ONE (06:19)
--- NOTE | 2018-05-11 06:27 | ER Document Report ---
ED General - General Chief Complaint: Nausea/Vomiting Stated Complaint: VOMITING Time Seen by Provider: 05/11/18 05:59 Mode of Arrival: Ambulatory Information source: Patient Notes: 28-year-old female at approximately 7 weeks gestation per last ultrasound with reflux presents for the third time in 2 weeks with complaint of nausea, vomiting and abdominal pain. Patient states she has been unable to keep anything down. She is unable to eat or take her vitamins. Patient denies any lower abdominal pain, vaginal bleeding. She has not yet been seen by OB. She denies fever, chills, dysuria, hematuria, vaginal discharge. TRAVEL OUTSIDE OF THE [place] IN LAST 30 DAYS: No - HPI Onset: Other Onset/Duration: Worse Quality of pain: Achy Severity: Moderate Associated symptoms: Body/muscle aches, Nausea, Vomiting. denies: Chest pain, Diarrhea, Fever, Shortness of breath Exacerbated by: Denies Relieved by: Denies Similar symptoms previously: Yes Recently seen / treated by doctor: Yes - Related Data Allergies/Adverse Reactions: Penicillins Allergy (Verified 12/29/17 13:27) Past Medical History - General Information source: Patient, [facility] Records - Social History Smoking Status: Never Smoker Frequency of alcohol use: None Drug Abuse: None Lives with: Spouse/Significant other Family History: Reviewed & Not Pertinent, Other - see hpi Patient has suicidal ideation: No Patient has homicidal ideation: No Renal/ Medical History: Denies: Hx Peritoneal Dialysis GI Medical History: Reports: Hx Gastroesophageal Reflux Disease Past Surgical History: Reports: Hx Breast Surgery - left fibroid removed, Hx Oral Surgery Review of Systems - Review of Systems Notes: REVIEW OF SYSTEMS: CONSTITUTIONAL : Denies fever, chills, or sweats. Denies recent illness. Denies weight loss, recent hospitalizations. EENT: Denies visual changes, eye pain. Denies sore throat, oral lesions, difficulty swallowing. CARDIOVASCULAR: Denies chest pain. Denies palpitations. Denies lower extremity edema. RESPIRATORY: Denies cough. Denies shortness of breath, wheezing. GASTROINTESTINAL: Denies abdominal distention. Denies diarrhea. Denies blood in vomitus, stools, or per rectum. Denies black, tarry stools. Denies constipation. GENITOURINARY: Denies difficulty urinating, painful urination, frequency, blood in urine, or vaginal discharge. MUSCULOSKELETAL: Denies back or neck pain or stiffness. Denies joint pain or swelling. SKIN: Denies rash, lesions or sores. HEMATOLOGIC : Denies easy bruising or bleeding. LYMPHATIC: Denies swollen glands. NEUROLOGICAL: Denies confusion or altered mental status. Denies loss of consciousness. Denies dizziness or lightheadedness. Denies headache. Denies weakness or paralysis. Denies problems difficulty with ambulation, slurred speech. Denies sensory loss, numbness, or tingling. Denies seizures. PSYCHIATRIC: Denies anxiety or stress. Denies depression, suicidal ideation, or homicidal ideation. Denies visual or auditory hallucinations. Physical Exam - Vital signs Vitals: Temp Pulse Resp BP Pulse Ox 97.8 F 107 H 18 111/84 97 05/11/18 05:39 05/11/18 05:39 05/11/18 05:39 05/11/18 05:39 05/11/18 05:39 Interpretation: Tachycardic - Notes Notes: PHYSICAL EXAMINATION: GENERAL: Ill-appearing, well-nourished and in no acute distress. HEAD: Atraumatic, normocephalic. EYES: Pupils equal round and reactive to light, extraocular movements intact, conjunctiva are normal. ENT: Nares patent, oropharynx clear without exudates. dry mucous membranes. NECK: Normal range of motion, supple without lymphadenopathy LUNGS: Breath sounds clear to auscultation bilaterally and equal. No wheezes rales or rhonchi. HEART: Regular rate and rhythm without murmurs ABDOMEN: Epigastric abdominal tenderness with palpation. No guarding, no rebound. No masses appreciated. Female : deferred Musculoskeletal: Normal range of motion, no pitting or edema. No cyanosis. NEUROLOGICAL: Cranial nerves grossly intact. Normal speech, normal gait. Normal sensory, motor exams PSYCH: Normal mood, normal affect. SKIN: Warm, Dry, normal turgor, no rashes or lesions noted. Course - Re-evaluation Re-evalutation: Laboratory 05/11/18 05/11/18 05/11/18 06:45 06:45 08:15 WBC 12.1 H RBC 5.47 H Hgb 16.6 H Hct 47.8 H MCV 87 MCH 30.3 MCHC 34.7 RDW 13.2 Plt Count 410 Seg Neutrophils % 88.9 H Lymphocytes % 6.6 L Monocytes % 4.4 Eosinophils % 0.0 Basophils % 0.1 Absolute Neutrophils 10.7 H Absolute Lymphocytes 0.8 Absolute Monocytes 0.5 Absolute Eosinophils 0.0 Absolute Basophils 0.0 Sodium 137.1 Potassium 4.2 Chloride 102 Carbon Dioxide 11 L Anion Gap 24 H BUN 8 Creatinine 0.57 Est GFR ( Amer) > 60 Est GFR (Non-Af Amer) > 60 Glucose 102 Calcium 11.4 H Total Bilirubin 1.2 Direct Bilirubin 0.4 Neonat Total Bilirubin Not Reportable Neonat Direct Bilirubin Not Reportable Neonat Indirect Bili Not Reportable AST 20 ALT 16 Alkaline Phosphatase 54 Total Protein 9.0 H Albumin 5.4 H Lipase 140.6 Beta HCG, Quant 662901.00 H Total Beta HCG POSITIVE Urine Color YELLOW Urine Appearance SLIGHTLY-CLOUDY Urine pH 5.0 Ur Specific Venus 1.023 Urine Protein 100 H Urine Glucose (UA) NEGATIVE Urine Ketones 80 H Urine Blood SMALL H Urine Nitrite NEGATIVE Urine Bilirubin NEGATIVE Urine Urobilinogen 2.0 H Ur Leukocyte Esterase TRACE H Urine WBC (Auto) 2 Urine RBC (Auto) 4 U Hyaline Cast (Auto) 1 Urine Bacteria (Auto) TRACE Squamous Epi Cells Auto 3 Urine Mucus (Auto) OCC Urine Ascorbic Acid NEGATIVE 28-year-old female at approximately 7 weeks gestation per last ultrasound with reflux presents for the third time in 2 weeks with complaint of nausea, vomiting and abdominal pain. Patient states she has been unable to keep anything down. Vital signs reviewed upon arrival. Patient is afebrile, normotensive and not tachycardic. She does appear significantly dehydrated. Patient received 3 L of LR, Zofran, Benadryl, promethazine. Right upper quadrant ultrasound was obtained and not consistent with cholecystitis. On reevaluation patient is asking for water which she was given and tolerated. No significant findings on CBC, CMP, urinalysis. HCG is increasing appropriately. 05/11/18 10:01 Patient was reevaluated multiple times and is sleeping comfortably. She has had no further vomiting during her ED course. Right upper quadrant ultrasound was obtained and showed no evidence of cholecystitis. Prior to discharge patient states that she is feeling much better. She does now have heard likely just that she just picked up. She does have Zofran at home and I will prescribe her promethazine to see if this works better for her. She does have an upcoming appointment with OB in 4 days. Patient was advised to return with any significant lower abdominal pain, vaginal bleeding, recurrence of persistent vomiting. Patient was evaluated and treated as appropriate for the patient's presenting symptoms and complaint, with consideration of any critical or life threatening conditions that may be associated with their obtained history and exam as noted above. All results were discussed with patient . Patient provided the opportunity to ask questions, and express concerns. Patient was educated on treatments based on their presumed diagnosis as noted above. At this time we will discharge the patient with return precautions and follow-up recommendations. Verbal discharge instructions given a the bedside. Medication warnings reviewed. Patient is in agreement with this plan and has verbalized understanding of return precautions. After careful consideration I feel that that patient can be safely discharged from the emergency department, they were advised to followup with a primary care physician in 2-3 days. Dictation on this chart was performed using voice recognition software and may result in unintended grammatical, spelling, syntax or errors. 05/11/18 19:44 05/11/18 19:44 - Vital Signs Vital signs: Temp Pulse Resp BP Pulse Ox 97.2 F 98 16 97/55 L 98 05/11/18 11:17 05/11/18 11:17 05/11/18 11:17 05/11/18 11:17 05/11/18 11:17 - Laboratory Result Diagrams: 05/11/18 06:45 05/11/18 06:45 Laboratory results interpreted by me: 05/11/18 05/11/18 05/11/18 06:45 06:45 08:15 WBC 12.1 H RBC 5.47 H Hgb 16.6 H Hct 47.8 H Seg Neutrophils % 88.9 H Lymphocytes % 6.6 L Absolute Neutrophils 10.7 H Carbon Dioxide 11 L Anion Gap 24 H Calcium 11.4 H Total Protein 9.0 H Albumin 5.4 H Beta HCG, Quant 233437.00 H Urine Protein 100 H Urine Ketones 80 H Urine Blood SMALL H Urine Urobilinogen 2.0 H Ur Leukocyte Esterase TRACE H - Diagnostic Test Radiology reviewed: Image reviewed, Reports reviewed Discharge - Discharge Clinical Impression: Hyperemesis gravidarum, First trimester , Epigastric abdominal pain Condition: Good Disposition: HOME, SELF-CARE Instructions: Hyperemesis Gravidarum ([facility]) Additional Instructions: Your symptoms are likely secondary to your . Please take your decree just and Zofran as prescribed. Please keep your already scheduled appointment with OB. Please return to the emergency department with any concerning symptoms. Follow up with your [id number] hours for further care or return to the ED IMMEDIATELY if symptoms worsen or you have any concerns. If you cannot afford to follow up with your primary care physician a list of low cost clinics have been provided at the end of your discharge papers as well. Most prescribed medications have multiple side effects. The safest thing to do is when filling your prescription speak to your pharmacist regarding possible interactions with your normal home medications and over the counter medications such as Ibuprofen, Tylenol, Benadryl. If you experience any symptoms that cause you discomfort or concern you should discontinue the medication immediately and return to the emergency room or call your primary care physician. Prescriptions: Promethazine HCl 12.5 mg PO Q6H PRN #12 tablet PRN Reason:
[2018-05-11] MEDS ORDERED: FOLIC ACID INJ 5 MG/1 ML 10 ML VIAL IV ONE ×2 (06:35→09:00)
[2018-05-11] MEDS: RINGERS SOLUTION,LACTATED 1,000 ML IV PRN ×2 (06:51→07:20)
[2018-05-11 06:57] LABS: ABSOLUTE LYMPHOCYTES (AUTO) 0.8 10^3/uL (0.5-4.7); ABSOLUTE MONOCYTES (AUTO) 0.5 10^3/uL (0.1-1.4); ABSOLUTE NEUT (AUTO) 10.7 10^3/uL (1.7-8.2); BASOPHILS % (AUTO) 0.1 % (0-2); HEMATOCRIT 47.8 % (36.0-47.0); HEMOGLOBIN 16.6 g/dL (12.0-15.5); LYMPHOCYTES % (AUTO) 6.6 % (13-45); MEAN CORPUSCULAR HEMOGLOBIN 30.3 pg (27.0-33.4); MEAN CORPUSCULAR HGB CONC 34.7 g/dL (32.0-36.0); MEAN CORPUSCULAR VOLUME 87 fl (80-97); MONOCYTES % (AUTO) 4.4 % (3-13); PLATELET COUNT 410 10^3/uL (150-450); RED BLOOD COUNT 5.47 10^6/uL (3.72-5.28); RED CELL DISTRIBUTION WIDTH 13.2 % (11.5-14.0); SEGMENTED NEUTROPHILS % (AUTO) 88.9 % (42-78); TOTAL CELLS COUNTED % (AUTO) 100 %; WHITE BLOOD COUNT 12.1 10^3/uL (4.0-10.5)
[2018-05-11 07:16] LABS: ALANINE AMINOTRANSFERASE 16 U/L (9-52); ALBUMIN 5.4 g/dL (3.5-5.0); ALKALINE PHOSPHATASE 54 U/L (38-126); ASPARTATE AMINO TRANSFERASE 20 U/L (14-36); BILIRUBIN,DIRECT 0.4 mg/dL (0.0-0.4); BILIRUBIN,TOTAL 1.2 mg/dL (0.2-1.3); BLOOD UREA NITROGEN 8 mg/dL (7-20); CALCIUM 11.4 mg/dL (8.4-10.2); GLUCOSE 102 mg/dL (75-110); LIPASE 140.6 U/L (23-300); POTASSIUM 4.2 mmol/L (3.6-5.0)
[2018-05-11 07:22] LABS: CARBON DIOXIDE 11 mmol/L (22-30); CHLORIDE 102 mmol/L (98-107); SODIUM 137.1 mmol/L (137-145)
[2018-05-11] MEDS ORDERED: ONDANSETRON HCL INJ/PF 4 MG/2 ML SDV IV ONE (08:15)
[2018-05-11 08:30] LABS: ANION GAP 24 (5-19)
[2018-05-11 08:39] LABS: APPEARANCE,URINE SLIGHTLY-CLOUDY; BILIRUBIN,URINE NEGATIVE (NEGATIVE); COLOR,URINE YELLOW; GLUCOSE, URINE NEGATIVE (NEGATIVE); KETONES,URINE 80 mg/dL (NEGATIVE); LEUKOCYTE ESTERASE,URINE TRACE (NEGATIVE); NITRITE,URINE NEGATIVE (NEGATIVE); PROTEIN,URINE 100 mg/dL (NEGATIVE); URINE SPECIFIC GRAVITY 1.023
--- NOTE | 2018-05-11 09:03 | RADIOLOGY REPORT (SQ) ---
EXAM DESCRIPTION: U/S ABDOMEN LIMITED W/O DOP COMPLETED DATE/TIME: 05/11/2018 8:42 am REASON FOR STUDY: ruq pain COMPARISON: None. TECHNIQUE: Dynamic and static grayscale images acquired of the abdomen and recorded on PACS. Additio nal selected color Doppler and spectral images recorded. LIMITATIONS: None. FINDINGS: PANCREAS: Midline pancreas unremarkable LIVER: No masses. Echotexture normal. LIVER VASCULATURE: Normal directional flow of the main portal vein and hepatic veins. GALLBLADDER: No stones. Normal wall thickness. No pericholecystic fluid. ULTRASOUND-DETECTED PALUMBO'S SIGN: Negative. INTRAHEPATIC DUCTS AND COMMON DUCT: CBD and intrahepatic ducts normal caliber. No filling defects. INFERIOR VENA CAVA: Normal flow. AORTA: No aneurysm. RIGHT KIDNEY: Normal size. Normal echogenicity. No solid or suspicious masses. No hydronephrosis. No calcifications. PERITONEAL AND RIGHT PLEURAL SPACE: No ascites or effusions. OTHER: No other significant findings. IMPRESSION: NORMAL RIGHT UPPER QUADRANT ULTRASOUND. TECHNICAL DOCUMENTATION: JOB ID: [id number] [employer]- All Rights Reserved Reading location - IP/workstation name: [email or web address]
[2018-05-11] MEDS ORDERED: RINGERS SOLUTION,LACTATED 1,000 ML IV ONE (09:58)
[2018-05-11] MEDS ORDERED: METOCLOPRAMIDE HCL INJ/PF 10 MG/2 ML SDV IV ONE (10:00)
[2018-05-11] MEDS ORDERED: DIPHENHYDRAMINE HCL 50 MG/ML VIAL IV ONE (10:01)
[2018-05-11 11:17] VITALS: BP 97/55
== END 2018-05-11 11:20 | disposition home or self-care (01) ==
LOC: ER 05:32
DX: O21.0 Mild hyperemesis gravidarum (principal); R10.13 Epigastric pain; Z3A.01 Less than 8 weeks gestation of pregnancy; Z88.0 Allergy status to penicillin
CPT/HCPCS: 99284; 96361; 96374; 96375; 36415; 84702; 83690; 85025; 80053; 81001; 76705; J1200; J3490; J2765; J2550; J2405; J7120; S0028